=== PATIENT | male | born 1960 | race Caucasian/White ===

== ENCOUNTER 2020-06-24 01:41 | Inpatient (IN) | payer SELFPAY ==
[~2020-06-24] VITALS: Ht 167.6 cm; Wt 64.6 kg
[2020-06-24] VITALS (54 sets, daily range): BP systolic 100–171; BP diastolic 51–97
[2020-06-24] MEDS ORDERED: SODIUM CHLORIDE 0.9% 1,000 ML IV ONE ×2 (02:18→03:15)
[2020-06-24] MEDS ORDERED: ASPIRIN 325MG EC TABLET PO ONE (02:30)
[2020-06-24 02:42] LABS: HEMATOCRIT. 36.2 % (42.0-52.0); HEMOGLOBIN. 10.4 g/dL (14.0-18.0); MEAN CORPUSCULAR VOLUME 103.9 fL (80.0-94.0); MEAN PLATELET VOLUME 9.6 fl (7.4-10.4); PLATELET 801 x1000/uL (130-400); RED BLOOD CELL COUNT 3.48 mill/uL (4.7-6.1)
[2020-06-24 02:50] LABS: CHLORIDE 88 mEq/L (98-107)
[2020-06-24 02:54] LABS: ETHANOL BLOOD < 10 mg/dL; INR 1.2; PROTHROMBIN TIME 12.4 sec (9.6-11.0)
[2020-06-24] MEDS ORDERED: ASPIRIN 325MG EC TABLET PO SCH (03:30)
[2020-06-24] MEDS ORDERED: SODIUM BICARBONATE 8.4% 1 MEQ/ML 50ML SYR IV ONE ×2 (03:30→09:00)
[2020-06-24] MEDS ORDERED: INSULIN REGULAR (DRIP) 100 UNITS in SODIUM CHLORIDE 0.9% 99 ML IV ONE (03:30)
[2020-06-24] MEDS ORDERED: SODIUM CHLORIDE 0.9% 1000ML BAG (SEPSIS BOLUS) IV ONE (03:30)
[2020-06-24] MEDS ORDERED: INSULIN LISPRO 100 UNITS/ML SUBCUT SCH (03:30)
[2020-06-24] MEDS ORDERED: CALCIUM CHLORIDE 1GM/10ML SYR IV ONE (03:30)
[2020-06-24] MEDS ORDERED: VANCOMYCIN 1 G PREMIX 200 ML IV SCH (03:30)
[2020-06-24] MEDS ORDERED: AZITHROMYCIN 500 MG in DEXT 5% WATER 250 ML IV SCH (03:30)
[2020-06-24] MEDS ORDERED: PIPERACILLIN/TAZOBACTAM 3.375GM/50ML PREMIX IV SCH (03:30)
[2020-06-24] MEDS ORDERED: INSULIN REGULAR (DRIP) 100 UNITS in SODIUM CHLORIDE 0.9% 99 ML IV SCH (04:00)
[2020-06-24 04:41] LABS: PLATELET ESTIMATE MARKEDLY INCREASED
[2020-06-24 05:17] LABS: BETA HYDROXYBUTYRATE 2.8 mMol/L (0.0-0.3)
[2020-06-24] MEDS ORDERED: ONDANSETRON HCL 4MG/2ML INJ IV PRN (06:00)
[2020-06-24] MEDS ORDERED: INSULIN REGULAR (DRIP) 100 UNITS in SODIUM CHLORIDE 0.9% 100 ML IV SCH (06:00)
[2020-06-24] MEDS ORDERED: DOCUSATE SODIUM 100MG CAPSULE PO PRN (06:00)
[2020-06-24] MEDS ORDERED: ACETAMINOPHEN 325MG TABLET PO PRN (06:00)
[2020-06-24] MEDS ORDERED: MAGNESIUM/ALUMINUM HYDROXIDE/SIMETHICONE 30ML UDC PO PRN (06:00)
[2020-06-24] MEDS ORDERED: ENOXAPARIN 100MG/ML SYR SUBCUT SCH (07:00)
[2020-06-24] MEDS: SODIUM CHLORIDE 0.9% 1,000 ML IV SCH ×4 (07:09→16:40)
[2020-06-24] MEDS ORDERED: SODIUM POLYSTYRENE SULFONATE 15 G/60 ML BOT PO ONE (07:45)
[2020-06-24 08:33] LABS: BG BASE EXCESS -25.3 mmol/L (-2.0-2.0); BG CARBOXYHEMOGLOBIN 0.2 % (0.5-1.5); BG DEOXYHEMOGLOBIN 10.4 % (0.0-5.0); BG FRACTION INSPIRED OXYGEN 36; BG HCO3 ACT 7.9 mmol/L (22.0-26.0); BG METHEMOGLOBIN 0.3 % (0.0-1.5); BG OXYGEN SATURATION 89.5 % (92.0-98.5); BG OXYHEMOGLOBIN 89.1 % (94.0-97.0); BG PCO2 48.7 mmHg (35.0-45.0); BG PO2 80.1 mmHg (75.0-100.0); BG SAMPLE SITE RIGHT BRACHIAL; BG TOTAL HEMOGLOBIN 10.1 g/dL (12.0-18.0); BG VENT MODE NASAL CANNULA
[2020-06-24] MEDS: PANTOPRAZOLE SODIUM 40 MG/VIAL IV SCH ×2 (08:40→09:00)
[2020-06-24] MEDS ORDERED: DEXTROSE 50% WATER 50ML SYRINGE IV PRN ×2 (09:45)
[2020-06-24] MEDS: BLOOD SUGAR DIAGNOSTIC STRIP TEST SCH ×14 (10:08→23:00)
[2020-06-24] MEDS ORDERED: CEFTRIAXONE 1 G PREMIX 50 ML IV SCH (11:00)
[2020-06-24] MEDS: CEFTRIAXONE 1,000 MG in DEXTROSE 5% WATER 50 ML IV SCH (11:40)
[2020-06-24] MEDS: INSULIN REGULAR (DRIP) 100 UNITS in SODIUM CHLORIDE 0.9% 99 ML IV SCH ×3 (12:02→20:40)
[2020-06-24 16:49] LABS: CREATINE KINASE MB FRACTION 12.9 ng/mL (0.5-3.6)
[2020-06-24] MEDS ORDERED: SODIUM CHLORIDE 0.9% 1,000 ML IV SCH (17:30)
[2020-06-24] MEDS ORDERED: POTASSIUM CHLORIDE INJ 40 MEQ in DEXT 5% WATER 250 ML IV NR (18:30)
[2020-06-24] MEDS ORDERED: FELO5TAB46 PO (18:46)
[2020-06-24] MEDS ORDERED: RAMI5CAP65 PO (18:46)
[2020-06-24] MEDS ORDERED: ATOR20TA PO (18:46)
[2020-06-24] MEDS ORDERED: SITA100T11 PO (18:46)
[2020-06-24] MEDS ORDERED: ONDANSETRON HCL 4MG/2ML INJ ONE (20:29)
[2020-06-24] MEDS: SODIUM CHLORIDE 0.45% 1,000 ML IV SCH (22:12)
[2020-06-24 23:27] LABS: CLARITY URINE CLOUDY (CLEAR); COLOR URINE YELLOW (YELLOW); KETONES URINE NEGATIVE (NEGATIVE); LEUKOCYTE ESTERASE URINE NEGATIVE (NEGATIVE); NITRITE URINE NEGATIVE (NEGATIVE); OCCULT BLOOD URINE 3+ (NEGATIVE); PROTEIN URINE 1+ (NEGATIVE); SPECIFIC GRAVITY URINE 1.021 (1.005-1.030); UROBILINOGEN URINE 0.2 E.U./dL (0.2-1.0)
[2020-06-24 23:37] LABS: *AMPHETAMINES SCREEN URINE NEGATIVE (NEGATIVE); *BARBITURATES SCREEN URINE NEGATIVE (NEGATIVE); *BENZODIAZEPINES SCREEN URINE NEGATIVE (NEGATIVE); *COCAINE SCREEN URINE NEGATIVE (NEGATIVE); METHADONE URINE SCREEN NEGATIVE (NEGATIVE); OPIATES URINE SCREEN NEGATIVE (NEGATIVE)
[2020-06-24 23:38] LABS: CANNABINOID URINE SCREEN NEGATIVE (NEGATIVE); PHENCYCLIDINE URINE SCREEN NEGATIVE (NEGATIVE)
[2020-06-24] MEDS ORDERED: HEPARIN 25,000 UNITS PREMIX 250 ML IV SCH (23:45)
[2020-06-25] VITALS (97 sets, daily range): BP systolic 136–210; BP diastolic 68–201
[2020-06-25] MEDS: BLOOD SUGAR DIAGNOSTIC STRIP TEST SCH ×17 (00:47→21:27)
[2020-06-25] MEDS: INSULIN REGULAR (DRIP) 100 UNITS in SODIUM CHLORIDE 0.9% 99 ML IV SCH (00:50)
[2020-06-25] MEDS ORDERED: HEPARIN 60 UNITS/KG BOLUS IV SCH (01:00)
[2020-06-25] MEDS ORDERED: HEPARIN BOLUS PRN aPTT 30-44 IV (01:00)
[2020-06-25] MEDS ORDERED: HEPARIN 25,000 UNITS PREMIX 250 ML IV SCH (01:00)
[2020-06-25] MEDS ORDERED: HEPARIN BOLUS PRN aPTT <30 IV (01:00)
[2020-06-25] MEDS: LABETALOL 5MG/ML SYR 20 MG/4 ML SYRINGE IV PRN (01:30)
[2020-06-25 05:10] LABS: HEMATOCRIT. 28.5 % (42.0-52.0); HEMOGLOBIN. 9.8 g/dL (14.0-18.0); MEAN CORPUSCULAR HEMOGLOBIN 29.9 pg (28.0-32.0); MEAN PLATELET VOLUME 9.1 fl (7.4-10.4); PLATELET 453 x1000/uL (130-400); RED BLOOD CELL COUNT 3.28 mill/uL (4.7-6.1); RED CELL DISTRIBUTION WIDTH 12.8 % (11.6-14.6)
[2020-06-25] MEDS: AZITHROMYCIN 250 MG in DEXT 5% WATER 250 ML IV SCH (05:23)
[2020-06-25] MEDS: SODIUM CHLORIDE 0.45% 1,000 ML IV SCH (06:59)
[2020-06-25] MEDS ORDERED: ENOXAPARIN 80MG/0.8ML SYR SUBCUT SCH (09:00)
[2020-06-25] MEDS ORDERED: POTASSIUM CHLORIDE INJ 40 MEQ in DEXT 5% WATER 250 ML IV NR (09:00)
[2020-06-25] MEDS: PANTOPRAZOLE SODIUM 40 MG/VIAL IV SCH ×2 (09:08→21:35)
[2020-06-25] MEDS ORDERED: DEXT 5%/0.45% NACL 1000ML 1,000 ML IV SCH (09:45)
[2020-06-25 09:59] LABS: PLATELET ESTIMATE INCREASED
[2020-06-25] MEDS ORDERED: DEXTROSE 50% WATER 50ML SYRINGE IV PRN (10:45)
[2020-06-25] MEDS: METOPROLOL TARTRATE 25MG TABLET PO SCH ×2 (11:03→21:36)
[2020-06-25] MEDS: INSULIN LISPRO 100 UNITS/ML SUBCUT SCH ×3 (11:28→21:35)
[2020-06-25] MEDS: CEFTRIAXONE 1,000 MG in DEXTROSE 5% WATER 50 ML IV SCH (12:50)
[2020-06-25] MEDS ORDERED: INSULIN GLARGINE UD 100 UNITS/ML SYR SUBCUT SCH ×2 (13:00→22:00)
[2020-06-25 13:22] LABS: AMYLASE 409 IU/L (25-115)
[2020-06-25 15:30] LABS: PHOSPHORUS 2.1 mg/dL (2.5-4.9)
[2020-06-25] MEDS: DEXAMETHASONE 4MG TABLET PO SCH (15:48)
[2020-06-25] MEDS ORDERED: REMDESIVIR 200 MG in SODIUM CHLORIDE 0.9% 250 ML IV SCH (16:00)
[2020-06-25] MEDS: CLONIDINE 0.1MG TABLET PO PRN (18:01)
[2020-06-25 21:23] LABS: HEMATOCRIT 26.9 % (42.0-52.0); HEMOGLOBIN 9.2 g/dL (14.0-18.0); MEAN CORPUSCULAR HEMOGLOBIN 30.4 pg (28.0-32.0); MEAN CORPUSCULAR VOLUME 88.7 fL (80.0-94.0); PLATELET 397 x1000/uL (130-400); RED BLOOD CELL COUNT 3.03 mill/uL (4.7-6.1); RED CELL DISTRIBUTION WIDTH 13.1 % (11.6-14.6)
[2020-06-25] MEDS: INSULIN GLARGINE UD 100 UNITS/ML SYR SUBCUT SCH (22:34)
[2020-06-26] VITALS (58 sets, daily range): BP systolic 133–169; BP diastolic 61–109
[2020-06-26 01:02] LABS: HEMATOCRIT 25.5 % (42.0-52.0); HEMOGLOBIN 8.7 g/dL (14.0-18.0); MEAN CORPUSCULAR HEMOGLOBIN 30.1 pg (28.0-32.0); MEAN CORPUSCULAR VOLUME 87.8 fL (80.0-94.0); PLATELET 386 x1000/uL (130-400); RED BLOOD CELL COUNT 2.91 mill/uL (4.7-6.1)
[2020-06-26] MEDS: AZITHROMYCIN 250 MG in DEXT 5% WATER 250 ML IV SCH (05:12)
[2020-06-26] MEDS: LABETALOL 5MG/ML SYR 20 MG/4 ML SYRINGE IV PRN (05:13)
[2020-06-26 05:19] LABS: HEMATOCRIT 28.3 % (42.0-52.0); HEMOGLOBIN 9.7 g/dL (14.0-18.0); MEAN CORPUSCULAR HEMOGLOBIN 30.1 pg (28.0-32.0); MEAN CORPUSCULAR VOLUME 87.6 fL (80.0-94.0); PLATELET 373 x1000/uL (130-400); RED BLOOD CELL COUNT 3.23 mill/uL (4.7-6.1); RED CELL DISTRIBUTION WIDTH 12.9 % (11.6-14.6)
[2020-06-26 05:34] LABS: CHLORIDE 107 mEq/L (98-107)
[2020-06-26 05:40] LABS: PHOSPHORUS 2.7 mg/dL (2.5-4.9)
[2020-06-26] MEDS: BLOOD SUGAR DIAGNOSTIC STRIP TEST SCH ×4 (06:31→20:53)
[2020-06-26] MEDS: INSULIN LISPRO 100 UNITS/ML SUBCUT SCH ×4 (06:33→20:54)
[2020-06-26] MEDS ORDERED: SODIUM CHLORIDE 0.9% 1,000 ML IV ONE (08:30)
[2020-06-26] MEDS: INSULIN GLARGINE UD 100 UNITS/ML SYR SUBCUT SCH ×2 (08:51→22:10)
[2020-06-26] MEDS: DEXAMETHASONE 4MG TABLET PO SCH (08:52)
[2020-06-26] MEDS: PANTOPRAZOLE SODIUM 40 MG/VIAL IV SCH ×2 (08:52→20:52)
[2020-06-26] MEDS: METOPROLOL TARTRATE 25MG TABLET PO SCH ×2 (08:57→20:53)
[2020-06-26] MEDS ORDERED: POTASSIUM CHLORIDE 20MEQ TABLET SR PO NR (09:00)
[2020-06-26] MEDS ORDERED: MAGNESIUM 2 G PREMIX 50 ML IV NR (09:30)
[2020-06-26] MEDS: CEFTRIAXONE 1,000 MG in DEXTROSE 5% WATER 50 ML IV SCH (10:55)
[2020-06-26] MEDS: REMDESIVIR 100 MG in SODIUM CHLORIDE 0.9% 250 ML IV SCH (15:46)
[2020-06-26] MEDS: CLONIDINE 0.1MG TABLET PO PRN (17:41)
[2020-06-27] VITALS (41 sets, daily range): BP systolic 124–164; BP diastolic 56–84
[2020-06-27] MEDS: CLONIDINE 0.1MG TABLET PO PRN (04:09)
[2020-06-27 04:36] LABS: CHLORIDE 107 mEq/L (98-107)
[2020-06-27 04:39] LABS: HEMATOCRIT. 29.3 % (42.0-52.0); HEMOGLOBIN. 9.9 g/dL (14.0-18.0); MEAN CORPUSCULAR HEMOGLOBIN 29.7 pg (28.0-32.0); MEAN CORPUSCULAR VOLUME 87.9 fL (80.0-94.0); MEAN PLATELET VOLUME 9.4 fl (7.4-10.4); PLATELET 410 x1000/uL (130-400); RED BLOOD CELL COUNT 3.33 mill/uL (4.7-6.1); RED CELL DISTRIBUTION WIDTH 13.2 % (11.6-14.6)
[2020-06-27] MEDS: AZITHROMYCIN 250 MG in DEXT 5% WATER 250 ML IV SCH (04:49)
[2020-06-27 05:38] LABS: PHOSPHORUS 2.8 mg/dL (2.5-4.9)
[2020-06-27] MEDS: BLOOD SUGAR DIAGNOSTIC STRIP TEST SCH ×4 (06:58→20:33)
[2020-06-27] MEDS: INSULIN LISPRO 100 UNITS/ML SUBCUT SCH ×4 (06:59→20:32)
[2020-06-27 08:47] LABS: BG BASE EXCESS 1.3 mmol/L (-2.0-2.0); BG CARBOXYHEMOGLOBIN 0.3 % (0.5-1.5); BG DEOXYHEMOGLOBIN 5.2 % (0.0-5.0); BG FRACTION INSPIRED OXYGEN 21; BG HCO3 ACT 23.8 mmol/L (22.0-26.0); BG METHEMOGLOBIN 0.3 % (0.0-1.5); BG OXYGEN SATURATION 94.8 % (92.0-98.5); BG OXYHEMOGLOBIN 94.2 % (94.0-97.0); BG PCO2 29.8 mmHg (35.0-45.0); BG PO2 77.5 mmHg (75.0-100.0); BG SAMPLE SITE RIGHT BRACHIAL; BG VENT MODE ROOM AIR
[2020-06-27] MEDS ORDERED: POTASSIUM CHLORIDE 20MEQ TABLET SR PO NR (09:30)
[2020-06-27] MEDS: PANTOPRAZOLE SODIUM 40 MG/VIAL IV SCH ×2 (09:31→20:31)
[2020-06-27] MEDS: METOPROLOL TARTRATE 25MG TABLET PO SCH ×2 (09:31→20:33)
[2020-06-27] MEDS: DEXAMETHASONE 4MG TABLET PO SCH (09:31)
[2020-06-27] MEDS: SODIUM CHLORIDE 0.45% 1,000 ML IV SCH (09:39)
[2020-06-27] MEDS: INSULIN GLARGINE UD 100 UNITS/ML SYR SUBCUT SCH ×2 (09:52→20:32)
[2020-06-27 11:09] LABS: PLATELET ESTIMATE INCREASED
[2020-06-27] MEDS: CEFTRIAXONE 1,000 MG in DEXTROSE 5% WATER 50 ML IV SCH (12:13)
[2020-06-27] MEDS: REMDESIVIR 100 MG in SODIUM CHLORIDE 0.9% 250 ML IV SCH (15:49)
[2020-06-28 00:28] VITALS: BP 136/58
[2020-06-28] MEDS: ALBUTEROL 6.7GM HFA INHALER ORI PRN ×3 (01:39→17:27)
[2020-06-28] MEDS: ALBUTEROL 6.7GM HFA INHALER ORI SCH ×4 (01:42→17:51)
[2020-06-28 04:00] VITALS: BP 180/58
[2020-06-28] MEDS: AZITHROMYCIN 250 MG in DEXT 5% WATER 250 ML IV SCH (04:49)
[2020-06-28 05:48] LABS: HEMATOCRIT. 32.5 % (42.0-52.0); MEAN CORPUSCULAR HEMOGLOBIN 29.9 pg (28.0-32.0); MEAN CORPUSCULAR VOLUME 88.7 fL (80.0-94.0); MEAN PLATELET VOLUME 9.8 fl (7.4-10.4); PLATELET 616 x1000/uL (130-400); RED BLOOD CELL COUNT 3.66 mill/uL (4.7-6.1); RED CELL DISTRIBUTION WIDTH 12.9 % (11.6-14.6)
[2020-06-28 06:10] LABS: CHLORIDE 103 mEq/L (98-107)
[2020-06-28] MEDS: BLOOD SUGAR DIAGNOSTIC STRIP TEST SCH ×4 (07:40→21:04)
[2020-06-28 08:00] VITALS: BP 148/70
[2020-06-28] MEDS: INSULIN LISPRO 100 UNITS/ML SUBCUT SCH ×4 (08:10→21:04)
[2020-06-28] MEDS: METOPROLOL TARTRATE 25MG TABLET PO SCH ×2 (09:34→21:03)
[2020-06-28] MEDS: DEXAMETHASONE 4MG TABLET PO SCH (09:35)
[2020-06-28] MEDS: INSULIN GLARGINE UD 100 UNITS/ML SYR SUBCUT SCH ×2 (09:36→21:04)
[2020-06-28] MEDS: PANTOPRAZOLE SODIUM 40 MG/VIAL IV SCH ×2 (09:37→21:02)
[2020-06-28] MEDS: SODIUM CHLORIDE 0.45% 1,000 ML IV SCH (09:37)
[2020-06-28 12:00] VITALS: BP 115/64
[2020-06-28] MEDS ORDERED: THROAT LOZENGES-BENZOCAINE/MENTH/CETYLPYRD CL LOZENGES MM PRN (12:00)
[2020-06-28] MEDS: CEFTRIAXONE 1,000 MG in DEXTROSE 5% WATER 50 ML IV SCH (12:23)
[2020-06-28 13:50] LABS: PLATELET ESTIMATE INCREASED
[2020-06-28 15:47] VITALS: BP 165/73
[2020-06-28] MEDS: REMDESIVIR 100 MG in SODIUM CHLORIDE 0.9% 250 ML IV SCH (17:18)
[2020-06-28 20:00] VITALS: BP 181/80
[2020-06-28] MEDS: CLONIDINE 0.1MG TABLET PO PRN (21:03)
[2020-06-29] VITALS: BP_SYST 119; BP_SYST 169; BP_DIAS 65; BP_DIAS 95
[2020-06-29] MEDS: ALBUTEROL 6.7GM HFA INHALER ORI SCH ×4 (00:09→18:27)
[2020-06-29 04:00] VITALS: BP 162/73
[2020-06-29] MEDS: AZITHROMYCIN 250 MG in DEXT 5% WATER 250 ML IV SCH (04:07)
[2020-06-29] MEDS: CLONIDINE 0.1MG TABLET PO PRN (05:52)
[2020-06-29] MEDS: BLOOD SUGAR DIAGNOSTIC STRIP TEST SCH ×3 (07:40→17:40)
[2020-06-29 07:55] LABS: CHLORIDE 106 mEq/L (98-107)
[2020-06-29 08:00] VITALS: BP 132/66
[2020-06-29] MEDS: INSULIN LISPRO 100 UNITS/ML SUBCUT SCH ×3 (08:10→18:26)
[2020-06-29] MEDS: METOPROLOL TARTRATE 25MG TABLET PO SCH (09:26)
[2020-06-29] MEDS: DEXAMETHASONE 4MG TABLET PO SCH (09:26)
[2020-06-29] MEDS: PANTOPRAZOLE SODIUM 40 MG/VIAL IV SCH (09:26)
[2020-06-29] MEDS: SODIUM CHLORIDE 0.45% 1,000 ML IV SCH (09:39)
[2020-06-29] MEDS: INSULIN GLARGINE UD 100 UNITS/ML SYR SUBCUT SCH (09:41)
[2020-06-29 12:00] VITALS: BP 118/51
[2020-06-29] MEDS ORDERED: POTASSIUM CHLORIDE 20MEQ TABLET SR PO SCH (12:30)
[2020-06-29 16:00] VITALS: BP 147/52
[2020-06-29] MEDS: REMDESIVIR 100 MG in SODIUM CHLORIDE 0.9% 250 ML IV SCH (16:10)
[2020-06-29 17:17] VITALS: BP 147/52
[2020-06-30] MEDS ORDERED: DEXAMETHASONE 4MG TABLET PO SCH (09:00)
== END 2020-06-29 19:10 | disposition home or self-care (01) | DRG 720 ==
LOC: ER 02:25 → EDBD 02:25 → MICUSO 03:51 → ENRESERV 09:15 → ER 10:12 → 7WST 06-27 21:50
PROVIDERS: ADMIT Hospitalist; ATTEND Hospitalist
PROC: 05HY33Z Insertion of Infusion Device into Upper Vein, Percutaneous Approach (ICD-10-PCS; 2020-06-24)
PROC: B54MZZA Ultrasonography of Right Upper Extremity Veins, Guidance (ICD-10-PCS; 2020-06-24)
PROC: XW033E5 Introduction of Remdesivir Anti-infective into Peripheral Vein, Percutaneous Approach, New Technology Group 5 (ICD-10-PCS; principal; 2020-06-25)
PROC: XW13325 Transfusion of Convalescent Plasma (Nonautologous) into Peripheral Vein, Percutaneous Approach, New Technology Group 5 (ICD-10-PCS; 2020-06-26)
DX: A41.89 Other specified sepsis (principal); U07.1 COVID-19; I21.4 Non-ST elevation (NSTEMI) myocardial infarction; E11.10 Type 2 diabetes mellitus with ketoacidosis without coma; J12.89 Other viral pneumonia; D64.9 Anemia, unspecified; E11.22 Type 2 diabetes mellitus with diabetic chronic kidney disease; E87.0 Hyperosmolality and hypernatremia; E87.5 Hyperkalemia; I12.9 Hypertensive chronic kidney disease with stage 1 through stage 4 chronic kidney disease, or unspecified chronic kidney disease; N17.9 Acute kidney failure, unspecified; N18.9 Chronic kidney disease, unspecified; K92.2 Gastrointestinal hemorrhage, unspecified; J96.01 Acute respiratory failure with hypoxia; K80.20 Calculus of gallbladder without cholecystitis without obstruction; E86.0 Dehydration; D72.810 Lymphocytopenia; J15.9 Unspecified bacterial pneumonia; E87.1 Hypo-osmolality and hyponatremia; E87.6 Hypokalemia; K59.00 Constipation, unspecified; Z91.14 Patient's other noncompliance with medication regimen; Z82.49 Family history of ischemic heart disease and other diseases of the circulatory system; Z79.4 Long term (current) use of insulin; Z83.3 Family history of diabetes mellitus
CPT/HCPCS: 36415; 36600; 71045; 71250; 74176; 76700; 76937; 80048; 80053; 80061; 80305; 80320; 81003; 82010; 82150; 82270; 82375; 82550; 82553; 82805; 82962; 83036; 83605; 83735; 83880; 84100; 84145; 84484; 85025; 85027; 86850; 86900; 87426; 87635; 93005; 93306; 93970; 99291; C1725; C9113; J0456; J0696; J1644; J1650; J1815; J2405; J2543; J3370; J3475; J3480; J3490; J7030; J7050; J7060; J8540; Q9957; G0480